=== PATIENT | female | born 1955 | race Caucasian/White ===

== ENCOUNTER → 2019-01-10 | Outpatient (CLI) | payer MEDICARE, OTHER ==
[~2019-01-10] MED LIST: CEPH500 PO; MULVITMIND PO
[2019-01-12 15:07] LABS: HPV 16 Negative (Negative); HPV 18 Negative (Negative); HPV OTHER HR TYPES Negative (Negative)
== END | disposition home or self-care (01) ==
LOC: LAB 14:09 → LAB SHORT 14:09
PROVIDERS: Obstetrics & Gynecology Gynecology
DX: Z91.89 Other specified personal risk factors, not elsewhere classified (principal)
CPT/HCPCS: 87624; G0123

== ENCOUNTER 2021-11-17 08:33 | Day surgery (SDC) | payer MEDICARE, OTHER ==
[~2021-11-17] VITALS: Ht 152.4 cm; Wt 59.9 kg
--- NOTE | 2021-11-17 09:18 | NUR ---
11/17/21 0918 Claudia Gomez FIRST ATTEMPT MISSED BY AVEL IN THE RIGHT HAND. SECOND ATTEMPT MISSED IN THE FOREARM BY AVEL. THIRD ATTEMPT SUCCESFFUL BY RN IN THE RIGHT FOREARM.
== END 2021-11-17 10:17 | disposition home or self-care (01) ==
LOC: ORSCSDS 08:33
PROVIDERS: Surgery
PROC: 0DJD8ZZ Inspection of Lower Intestinal Tract, Via Natural or Artificial Opening Endoscopic (ICD-10-PCS; principal; 2021-11-17 09:45)
DX: Z12.11 Encounter for screening for malignant neoplasm of colon (principal); K57.30 Diverticulosis of large intestine without perforation or abscess without bleeding
CPT/HCPCS: J2704; J7120